=== PATIENT | female | born 2000 | race Caucasian/White ===

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

== ENCOUNTER 2019-01-09 18:52 | Emergency (ER) | payer OTHER ==
[~2019-01-09] VITALS: Ht 154.9 cm; Wt 44.9 kg
[2019-01-09 19:00] VITALS: BP 130/92
--- NOTE | 2019-01-09 19:00 | NUR ---
BIB MOTHER FOR BUE RASH, MULTIPLE BUE SCRATCHES, NON-VERBAL, PACING AROUND THE ROOM. TO ER BED 1, AWAITING MD MORSE.
--- NOTE | 2019-01-09 19:25 | NUR ---
LATRICIA CALLES AT BEDSIDE
[2019-01-09] MEDS ORDERED: CEFTRIAXONE 500 MG VIAL IM ONE (19:30)
[2019-01-09] MEDS ORDERED: CEFTRIAXONE 500 MG VIAL ONE (19:32)
[2019-01-09] MEDS ORDERED: LIDOCAINE HCL/MPF 1% 30 ML VIAL IJ ONE (19:32)
--- NOTE | 2019-01-09 19:33 | NUR ---
REPORT GIVEN TO JALEEL TOM FOR REX
== END 2019-01-09 19:48 | disposition home or self-care (01) ==
LOC: ER 18:56
DX: L30.9 Dermatitis, unspecified (principal); S61.452A Open bite of left hand, initial encounter; S61.451A Open bite of right hand, initial encounter; F84.0 Autistic disorder; W50.3XXA Accidental bite by another person, initial encounter; Y93.89 Activity, other specified; Y92.89 Other specified places as the place of occurrence of the external cause; Y99.8 Other external cause status
CPT/HCPCS: J0696; J3490

== ENCOUNTER 2023-11-25 14:01 | Emergency (ER) | payer OTHER ==
[~2023-11-25] VITALS: Ht 157.5 cm; Wt 46.3 kg
[2023-11-25] MEDS: ZIPRASIDONE MESYLATE 20 MG/VIAL VIAL IM ONE (15:00)
[2023-11-25] MEDS: diphenhydrAMINE HCL 50 MG/ML VIAL IM ONE (15:00)
[2023-11-25] MEDS: LORAZEPAM INJ 2 MG/ML VIAL IM/IV ONE (15:00)
[2023-11-25] MEDS ORDERED: ZIPRASIDONE MESYLATE 20 MG/VIAL VIAL IM ONE (15:10)
[2023-11-25] MEDS ORDERED: LORAZEPAM INJ 2 MG/ML VIAL ONE (15:11)
[2023-11-25] MEDS ORDERED: diphenhydrAMINE HCL ELIX 25 MG/10 ML UDC ONE (15:11)
[2023-11-25] MEDS ORDERED: diphenhydrAMINE HCL 50 MG/ML VIAL ONE (15:12)
[2023-11-25 15:25] LABS: BASOPHILS # (AUTO) 0.1 K/uL (0.0-0.2); BASOPHILS % (AUTO) 0.6 % (0.0-2.0); EOSINOPHILS # (AUTO) 0.1 K/uL (0.0-0.7); EOSINOPHILS % (AUTO) 1.2 % (0.0-6.0); HEMATOCRIT 36 % (33-45); HEMOGLOBIN 11.5 g/dL (11.5-14.8); LYMPHOCYTES % (AUTO) 28.8 % (20.0-44.0); MEAN CORPUSCULAR HEMOGLOBIN 27 PG (26.0-33.0); MEAN CORPUSCULAR HGB CONC 33 g/dl (31.0-36.0); MEAN CORPUSCULAR VOLUME 82 fL (82-100); MONOCYTES # (AUTO) 0.7 K/uL (0.1-1.30); NEUTROPHILS # (AUTO) 6.5 K/uL (1.8-8.9); NEUTROPHILS % (AUTO) 62.4 % (43.0-81.0); PLATELET COUNT (AUTO) 306 K/uL (150-450); RED BLOOD CELL COUNT(AUTO) 4.33 MIL/uL (4.0-5.2); WHITE BLOOD COUNT (AUTO) 10.4 K/uL (4.3-11.0)
[2023-11-25 15:45] LABS: ALANINE AMINOTRANSFERASE 19 U/L (12-78); ALBUMIN 3.8 g/dL (3.4-5.0); ALKALINE PHOSPHATASE 79 U/L (46-116); ASPARTATE AMINOTRANSFERASE 23 U/L (15-37); BILIRUBIN,TOTAL 0.4 mg/dL (0.2-1.0); CALCIUM, SERUM 8.7 mg/dL (8.5-10.1); CARBON DIOXIDE 23 mmol/L (21-32); CHLORIDE 107 mmol/L (98-107); CREATININE 0.7 mg/dL (0.6-1.3); GLUCOSE 101 mg/dL (74-106); LIPASE 23 U/L (16-77); POTASSIUM 3.7 mmol/L (3.5-5.1); SODIUM SERUM 142 mmol/L (136-145); UREA NITROGEN, BLOOD 18 mg/dL (7-18)
[2023-11-25 15:51] LABS: LACTIC ACID 3.2 mmol/L (0.4-2.0)
[2023-11-25] MEDS ORDERED: CEFTRIAXONE 1 G VIAL ONE (16:54)
[2023-11-25] MEDS ORDERED: LIDOCAINE /MPF 1% VIAL 5 ML VIAL ONE (16:54)
[2023-11-25] MEDS: CEFTRIAXONE 1 G in IV D5W 50 ML IV ONE (16:57)
[2023-11-25] MEDS ORDERED: AMOX-430 PO (16:59)
[2023-11-25 17:20] VITALS: TEMP 98.2; O2SAT 100
== END 2023-11-25 17:21 | disposition left against medical advice (07) ==
LOC: ER 14:06
DX: E87.20 Acidosis, unspecified (principal)
CPT/HCPCS: 99284; 96372 ×2; 85025; 83605; 83690; 36415; 80053; J2060; J1200; J0696 ×2; J7060; J3490; J3486; Q0163

== ENCOUNTER 2023-11-25 18:17 | Emergency (ER) | payer OTHER ==
[~2023-11-25 18:17] MED LIST changes: +AMOX-430 PO
== END 2023-11-26 00:35 | disposition left against medical advice (07) ==
LOC: ER 18:47
DX: R10.9 Unspecified abdominal pain (principal)

== ENCOUNTER 2024-05-10 23:35 | Emergency (ER) | payer OTHER ==
[~2024-05-10] VITALS: Ht 160 cm; Wt 45.4 kg
[2024-05-11] MEDS ORDERED: CLIN75SO8 PO (01:00)
[2024-05-11 01:51] VITALS: O2SAT 99
[2024-05-11] MEDS ORDERED: CLIN300C12 PO (02:09)
== END 2024-05-11 01:51 | disposition home or self-care (01) ==
LOC: ER 23:57
DX: J34.0 Abscess, furuncle and carbuncle of nose (principal); Z79.899 Other long term (current) drug therapy

== ENCOUNTER 2024-05-13 09:32 | Emergency (ER) | payer OTHER ==
[~2024-05-13] VITALS: Ht 157.5 cm; Wt 44.0 kg
[~2024-05-13 09:32] MED LIST changes: +CLIN300C12 PO; +CLIN75SO8 PO
[2024-05-13 09:40] VITALS: TEMP 98.2
[2024-05-13] MEDS ORDERED: MUPI22OI7 TP (10:15)
[2024-05-13 10:24] VITALS: O2SAT 100
== END 2024-05-13 10:25 | disposition home or self-care (01) ==
LOC: ER 09:33
DX: L03.211 Cellulitis of face (principal); F84.0 Autistic disorder

== ENCOUNTER 2024-06-04 12:52 | Emergency (ER) | payer OTHER ==
[~2024-06-04] VITALS: Ht 162.6 cm; Wt 52.2 kg
[~2024-06-04 12:52] MED LIST changes: +MUPI22OI7 TP
[2024-06-04 12:56] VITALS: BP 111/67; TEMP 98
--- NOTE | 2024-06-04 12:56 | NUR ---
bibmother, dysuria x 2 days
[2024-06-04] MEDS ORDERED: CEPH250S PO (14:29)
[2024-06-04] MEDS ORDERED: CLOT15CR27 TP (14:29)
[2024-06-04] MEDS ORDERED: CEFTRIAXONE 1 G VIAL ONE (14:33)
[2024-06-04] MEDS ORDERED: LIDOCAINE /MPF 1% VIAL 5 ML VIAL ONE (14:33)
--- NOTE | 2024-06-04 14:40 | NUR ---
Patient discharged to home in stable condition. Written and verbal after care instructions given. Patient verbalizes understanding of instruction.
[2024-06-04 14:41] VITALS: O2SAT 99
[2024-06-04] MEDS: CEFTRIAXONE 1 G VIAL IM ONE (14:41)
== END 2024-06-04 14:41 | disposition home or self-care (01) ==
LOC: ER 12:55
DX: N39.0 Urinary tract infection, site not specified (principal); L22 Diaper dermatitis; Z79.899 Other long term (current) drug therapy
CPT/HCPCS: 99283; 96372; J0696; J3490